=== PATIENT | female | born 1980 | race Caucasian/White ===

== ENCOUNTER 2016-04-24 18:02 | Emergency (ER) | payer BC, OTHER ==
[~2016-04-24] VITALS: Ht 160 cm; Wt 52.6 kg
[~2016-04-24 18:02] MED LIST: AZTH250C PO; CODE118S2 PO; GUAI118L10 PO; GUAI5LIQ PO; LVT.025T PO; METH4TAB PO; PRD20T PO
--- OUTSIDE RECORDS SUMMARY | 2016-04-24 18:08 | XMS REPORT | Continuity of Care Document ---
Author Author [facility] Organization [facility] Address Unknown Phone Unavailable Allergies Active Description Code Type Severity Reaction Onset Reported/Identified Relationship to Patient Clinical Status Yes penicillin G Drug Allergy 07/08/2011 Yes penicillin G Drug Allergy N/A N/A 07/08/2011 Yes Synthroid 50 mcg tablet Drug Allergy N/A N/A 09/27/2013 Medications Problems Date Dx Coded Attending Type Code Diagnosis Diagnosed By 07/08/2011 782.0 DISTURBANCE OF SKIN SENSATION 07/08/2011 MATHEW RAMOS DO 782.0 DISTURBANCE OF SKIN SENSATION 07/08/2011 MATHEW RAMOS DO 782.0 DISTURBANCE OF SKIN SENSATION 07/08/2011 MATHEW RAMOS DO 782.0 DISTURBANCE OF SKIN SENSATION 07/08/2011 JONAH MALLORY APRN 782.0 DISTURBANCE OF SKIN SENSATION 07/08/2011 JONAH MALLORY APRN 782.0 DISTURBANCE OF SKIN SENSATION 11/13/2011 V04.81 FLU DX (3 YRS AND ABOVE, IM) 11/13/2011 MATHEW RAMOS DO V04.81 FLU DX (3 YRS AND ABOVE, IM) 11/13/2011 MATHEW RAMOS DO V04.81 FLU DX (3 YRS AND ABOVE, IM) 11/13/2011 MATHEW RAMOS DO V04.81 FLU DX (3 YRS AND ABOVE, IM) 11/13/2011 JONAH MALLORY APRN V04.81 FLU DX (3 YRS AND ABOVE, IM) 11/13/2011 JONAH MALLORY APRN V04.81 FLU DX (3 YRS AND ABOVE, IM) 06/10/2012 V70.5 PREEMPLOYMENT/PRESCHOOL EXAM 06/10/2012 MATHEW RAMOS DO V70.5 PREEMPLOYMENT/PRESCHOOL EXAM 06/10/2012 MATHEW RAMOS DO V70.5 PREEMPLOYMENT/PRESCHOOL EXAM 06/10/2012 RAMOS DO, MATHEW K V70.5 PREEMPLOYMENT/PRESCHOOL EXAM 06/10/2012 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 V70.5 PREEMPLOYMENT/PRESCHOOL EXAM 06/10/2012 MALLORY JONAH HARRIS V70.5 PREEMPLOYMENT/PRESCHOOL EXAM 09/09/2012 RAMOS DO, MATHEW K 728.85 SPASM OF MUSCLE 09/09/2012 RAMOS DO, MTAHEW K 786.50 UNSPECIFIED CHEST PAIN 09/09/2012 RAMOS DO, MATHEW K 728.85 SPASM OF MUSCLE 09/09/2012 RAMOS DO, MATHEW K 786.50 UNSPECIFIED CHEST PAIN 09/09/2012 RAMOS DO, MATHEW K 728.85 SPASM OF MUSCLE 09/09/2012 RAMOS DO, MATHEW K 786.50 UNSPECIFIED CHEST PAIN 09/09/2012 MALLORY JONAH HARRIS 728.85 SPASM OF MUSCLE 09/09/2012 MALLORY JONAH HARRIS 786.50 UNSPECIFIED CHEST PAIN 09/09/2012 MALLORY JONAH HARRIS 728.85 SPASM OF MUSCLE 09/09/2012 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 786.50 UNSPECIFIED CHEST PAIN 02/26/2013 RAMOS SHABBIR SCOTTA K 462 ACUTE PHARYNGITIS 02/26/2013 RAMOS DO MATHEW K 462 ACUTE PHARYNGITIS 02/26/2013 RAMOS , MATHEW K 462 ACUTE PHARYNGITIS 02/26/2013 JONAH MALLORY APRN 462 ACUTE PHARYNGITIS 02/26/2013 JONAH MALLORY APRN 462 ACUTE PHARYNGITIS 04/14/2013 SHABBIR RAMOS DOA K 244.9 HYPOTHYROIDISM 04/14/2013 RAMOS SHABBIR SCOTTA K 244.9 HYPOTHYROIDISM 04/14/2013 JONAH MALLORY APRN 244.9 HYPOTHYROIDISM 04/14/2013 MALLORY JONAH HARRIS 244.9 HYPOTHYROIDISM 06/30/2013 RAMOS SHABBIR SCOTTA K 784.0 HEADACHE 06/30/2013 RAMOS DOSHABBIRA K 784.0 HEADACHE 06/30/2013 JONAH MALLORY APRN 784.0 HEADACHE 06/30/2013 MALLORY JONAH HARRIS 784.0 HEADACHE 08/25/2013 MALLORY JONAH HARRIS 787.91 DIARRHEA 08/25/2013 JONAH MALLORY APRN 787.91 DIARRHEA 09/27/2013 JONAH MALLORY APRN 465.9 UPPER RESPIRATORY INFECTION Procedures Code [place] [address] TB TEST INTRADERMAL 06/10/2012 39436 ROUTINE VENIPUNCTURE 06/28/2013 44006 TSH 06/28/2013 Results Encounters ACCT No. Visit Date/Time Discharge Status Pt. Type Provider Facility Loc./Unit Complaint [id number] 05/27/2013 22:43:00 2013 23:36:00 DIS Emergency [id number] 03/03/2013 11:20:00 2013 12:27:00 DIS Emergency [id number] 03/01/2013 20:57:00 2012 22:04:00 DIS Emergency
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
[2016-04-24] MEDS ORDERED: TRAM50TA2 PO (20:02)
[2016-04-24] MEDS ORDERED: IBUPROFEN TABLET 200 MG TAB PO ONE (20:15)
[2016-04-24] MEDS ORDERED: TETANUS,DIPTH,PERTUSS P/F (BOOSTRIX) 0.5 ML VIAL IM ONE (20:30)
[2016-04-24 20:33] VITALS: BP 123/95
[2016-04-24] MEDS ORDERED: NEO/POLY/BAC (NEOSPORIN) OINT 15 GM TUBE TOP SCH (21:00)
== END 2016-04-24 20:33 | disposition home or self-care (01) ==
LOC: EDUNIT# 18:02 → ER 18:04
DX: S01.511A Laceration without foreign body of lip, initial encounter (principal); S00.81XA Abrasion of other part of head, initial encounter; Z23 Encounter for immunization; F17.210 Nicotine dependence, cigarettes, uncomplicated; V86.59XA Driver of other special all-terrain or other off-road motor vehicle injured in nontraffic accident, initial encounter; Y99.8 Other external cause status
CPT/HCPCS: 70486; 90471; 90715; 99282

== ENCOUNTER 2016-08-31 07:44 | Emergency (ER) | payer OTHER ==
[~2016-08-31] VITALS: Ht 162.6 cm; Wt 54.4 kg
[~2016-08-31 07:44] MED LIST changes: +TRAM50TA2 PO
[2016-08-31] MEDS ORDERED: KETOROLAC 60 MG/2 ML VIAL IM STA (07:54)
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
[2016-08-31 08:10] VITALS: BP 136/88
[2016-08-31] MEDS ORDERED: SULF1TAB35 PO (08:17)
[2016-08-31] MEDS ORDERED: ONDN4T PO (08:22)
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
--- OUTSIDE RECORDS SUMMARY | 2016-09-03 04:08 | XMS REPORT | CCD ---
Author Author PRAVIN AUGUSTIN Organization Unknown Address [address] [facility] [address] [place], [place] [id number] Care Team Providers Care Head Of Science Name Role Phone KRISTEN SMITH, JONAH Smith JONAH PETERSON MD Vital Signs Unknown or Not Available. Allergies Allergy Code Allergy Type Reaction Status PCN (penicillin) 0 Drug allergy Active Procedures Procedure Code Procedure Type Date CT ABD AND PELVIS W/O CONTRAST 545670644 SNOMED CT 2013 TEST URINE 755825946 SNOMED CT 01/09/2014 URINALYSIS C&S IF IND 013631986 SNOMED CT 01/09/2014 History of Immunizations Unknown or Not Available. Problems Unknown or Not Available. Results URINALYSIS C&S IF IND - Collect Date/Time: 01/09/2014 09:40 Test Name Code Test Result Test Units Test Ref Range COLOR RED N/A NL: YELLOW APPEARANCE CLOUDY N/A NL: CLEAR SPEC GRAV 1.025 N/A NL: 1.002 - 1.022 pH 5.0 N/A NL: 5 - 9 PROTEIN 100 N/A NL: NEGATIVE mg/dl GLUCOSE NEGATIVE N/A NL: NEGATIVE mg/dl KETONE TRACE N/A NL: NEGATIVE mg/dl BILIRUBIN NEGATIVE N/A NL: NEGATIVE BLOOD LARGE N/A NL: NEGATIVE NITRITE NEGATIVE N/A NL: NEGATIVE LEUK SCREEN TRACE N/A NL: NEGATIVE WBC/HPF RARE N/A NL: NEGATIVE RBC/HPF TNTC N/A NL: NEGATIVE CASTS/LPF NEGATIVE N/A NL: NEGATIVE CRYSTALS NEGATIVE N/A NL: NEGATIVE MUCOUS THRDS NEGATIVE N/A NL: NEGATIVE BACTERIA NEGATIVE N/A NL: NEGATIVE EPITH CELLS NEGATIVE N/A NL: NEGATIVE TRICHOMONAS NEGATIVE N/A NL: NEGATIVE YEAST NEGATIVE N/A NL: NEGATIVE CULT SET UP? NO N/A TEST URINE - Collect Date/Time: 01/09/2014 10:00 Test Name Code Test Result Test Units Test Ref Range TEST UR 2106-3 NEGATIVE N/A Medications Unknown or Not Available. Medications Administered Unknown or Not Available. Encounters Encounter Diagnosis Diagnosis Code Start Date CALCULUS OF URETER 5921 01/09/2014 Social History Smoking Status Code Start Date End Date Current every day smoker [id number] Patient Decision Aids Unknown or Not Available. Discharge Instructions You were admitted to [facility] on 01/09/2014 with a principal diagnosis of CALCULUS OF URETER. You were discharged from [facility] on 01/09/2014. Should you have any questions prior to discharge, please contact a member of your healthcare team. If you have left the hospital and have any questions, please contact your primary care physician. Chief Complaint and Reason For Visit Chief Complaint Date of Onset LEFT FLANK PAIN Function Status Unknown or Not Available. Referral/Transition of Care Unknown or Not Available.
--- OUTSIDE RECORDS SUMMARY | 2016-09-03 04:08 | XMS REPORT | CCD ---
Author Author EDITH REIS Organization Unknown Address [address] [facility] [address] [place], [place] [id number] Care Team Providers Care Data Architect Manager Name Role Phone KRISTEN SMITH, JONAH Smith JONAH PETERSON MD Vital Signs Unknown or Not Available. Allergies Allergy Code Allergy Type Reaction Status PCN (penicillin) 0 Drug allergy Active Procedures Procedure Code Procedure Type Date CT ABD AND PELVIS W/O CONTRAST 630018622 SNOMED CT 2013 TEST URINE 229248852 SNOMED CT 01/09/2014 URINALYSIS C&S IF IND 112407066 SNOMED CT 01/09/2014 History of Immunizations Unknown [...] Date End Date Current every day smoker [id number] Patient Decision Aids Unknown or Not Available. Discharge Instructions You were admitted to [facility] on 01/09/2014 with a principal diagnosis of CALCULUS OF URETER. You were discharged from [facility] on 01/09/2014. Should you have any questions [...]
== END 2016-08-31 08:22 | disposition home or self-care (01) ==
LOC: EDUNIT# 07:44 → ER 07:47
DX: S61.235A Puncture wound without foreign body of left ring finger without damage to nail, initial encounter (principal); E03.9 Hypothyroidism, unspecified; F17.210 Nicotine dependence, cigarettes, uncomplicated; Z90.49 Acquired absence of other specified parts of digestive tract; W54.0XXA Bitten by dog, initial encounter
CPT/HCPCS: 96372; 99283

== ENCOUNTER 2016-09-23 10:29 | Emergency (ER) | payer OTHER ==
[~2016-09-23] VITALS: Ht 162.6 cm; Wt 52.6 kg
[~2016-09-23 10:29] MED LIST changes: +ONDN4T PO; +SULF1TAB35 PO
--- NOTE | 2016-09-23 11:11 | ED Lower Extremity ---
General Chief Complaint: Lower Extremity Stated Complaint: RT ANKLE PAIN Nursing Triage Note: Pt reports twisting R ankle on 09/21 and has been unable to bear weight since. Nursing Sepsis Screen: No Definite Risk Source: patient, family (son) Exam Limitations: no limitations History of Present Illness Time seen by provider: 11:11 Initial Comments 36-year-old female patient presents to the emergency department complaints of right ankle/foot pain after twisting and on 09/21. Patient states she stepped off of cement onto an incline and rolled the ankle inward. Unable to bear weight. Denies previous injury to the right foot or ankle. Onset: other (09/21/16) Pain/Injury Location: right foot, right ankle Method of Injury: twisted Modifying Factors: Improves With Immobilization, Worse With Movement Allergies and Home Medications Allergies Coded Allergies: Penicillins (Verified Allergy, 03/01/13) Home Medications Hydrocodone/Acetaminophen 1 Each Tablet, 1-2 EACH PO Q4H PRN for PAIN, #30 Ref 0 Prescribed by: ZULEMA LAWLER on 09/23/16 1202 Constitutional: no symptoms reported Respiratory: no symptoms reported Cardiovascular: no symptoms reported Musculoskeletal: see HPI, No back pain, joint pain, joint swelling, No neck pain Skin: change in color (bruising to the right ankle and foot) Psychiatric/Neurological: No Symptoms Reported All Other Systems Reviewed Negative Unless Noted: Yes (Negative excepted noted.) Past Svqitap-Dzcehp-Wjadbf Hx Patient Social History Alcohol Use: Occasionally Uses Recreational Drug Use: No Smoking Status: Current Everyday Smoker Type Used: Cigarettes Recent Foreign Travel: No Contact w/Someone Who Travel: No Recent Infectious Disease Expo: No Recent Hopitalizations: No Immunizations Up To Date Tetanus Booster (TDap): Less than 5yrs Seasonal Allergies Seasonal Allergies: No Surgeries HX Surgeries: Yes (FALLOPIAN TUBE) Surgeries: Appendectomy Respiratory Hx Respiratory Disorders: No Cardiovascular Hx Cardiac Disorders: No Neurological Hx Neurological Disorders: No Reproductive System Hx Reproductive Disorders: No Sexually Transmitted Disease: No 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 Genitourinary Hx Genitourinary Disorders: No Gastrointestinal Hx Gastrointestinal Disorders: No Musculoskeletal Hx Musculoskeletal Disorders: No Endocrine Hx Endocrine Disorders: Yes Endocrine Disorders: Hypothyroidsim HEENT HX ENT Disorders: No Cancer Hx Cancer: No Psychosocial Hx Psychiatric Problems: No Blood Transfusions Hx Blood Disorders: No Reviewed Nursing Assessment Reviewed/Agree w Nursing PMH: Yes Family Medical History Significant Family History: No Pertinent Family Hx Physical Exam Vital Signs Vital Sign - Last 12Hours 09/23/16 10:39 Temp 96.8 Pulse 126 Resp 18 B/P (MAP) 145/113 Pulse Ox 98 O2 Delivery Room Air Capillary Refill : Less Than 3 Seconds General Appearance: WD/WN, no apparent distress Cardiovascular: normal peripheral pulses Hips: bilateral hip non-tender, bilateral hip normal inspection, bilateral hip normal range of motion, bilateral hip no evidence of injury Legs: bilateral leg non-tender, bilateral leg normal inspection, bilateral leg normal range of motion, bilateral leg no evidence of injury Knees: bilateral knee non-tender, bilateral knee normal inspection, bilateral knee normal range of motion, bilateral knee no evidence of injury Ankles: left ankle non-tender, left ankle normal inspection, left ankle normal range of motion, left ankle no evidence of injury, right ankle bone tenderness ( very mild tenderness over the medial malleolus), right ankle ecchymosis ( lateral malleolus), right ankle limited range of motion, right ankle pain, right ankle soft tissue tenderness (bilateral malleolus), right ankle swelling Feet: left foot non-tender, left foot normal inspection, left foot normal range of motion, left foot no evidence of injury, right foot bone tenderness ( tenderness over the proximal dorsal foot), right foot ecchymosis, right foot limited range of motion, right foot pain, right foot soft tissue tenderness, right foot swelling Neurologic/Tendon: normal sensation, normal motor functions, normal tendon functions, responds to pain, no evidence tendon injury Neurologic/Psychiatric: no motor/sensory deficits, alert, normal mood/affect, oriented x 3 Skin: normal color, warm/dry, ecchymosis (rt lateral ankle and foot.) Progress/Results/Core Measures Results/Orders My Orders Orders - ZULEMA LAWLER Acetaminophen Tablet (Tylenol Tablet) (09/23/16 12:03) Crutches (09/23/16 12:03) Steplite (09/23/16 12:03) Vital Signs/I&O Vital Sign - Last 12Hours 09/23/16 10:39 Temp 96.8 Pulse 126 Resp 18 B/P (MAP) 145/113 Pulse Ox 98 O2 Delivery Room Air Blood Pressure Mean: 124 Diagnostic Imaging Diagonstic Imaging: Xray Plain Films/CT/US/NM/MRI: ankle Comments FINDINGS: There is suggestion of bony irregularity seen along the hindfoot lateral aspect, probably in the anterior aspect of the calcaneus, which is not well evaluated on this exam. No definite fracture is seen. The ankle mortise is normal in configuration. IMPRESSION: No acute process. Dictated on workstation # [id number] Reviewed: Reviewed by Me (radiology report reviewed by me) Diagonstic Imaging: Xray Plain Films/CT/US/NM/MRI: other (foot) Comments FINDINGS: Along the lateral anterior aspect of the calcaneus there is a osseous irregularity only seen on one view. No definitive fracture line is seen. There is otherwise no fracture, dislocation or radiopaque foreign body. There is a sclerotic focus in the posterior inferior aspect of the calcaneus measuring 7 mm probably a bony island. IMPRESSION: Focal area of irregularity at the anterior lateral margin of the calcaneus seen on the oblique projection. This could potentially be secondary to an old injury or congenital. If this matches the area of concern and high clinical suspicion for an acute fracture, then CT scan of the hindfoot could be obtained. Dictated on workstation # [id number] Reviewed: Reviewed by Me (radiology report reviewed by me) Departure Communication Progress Notes Diagnostic findings discussed with the patient. Patient states she is driving home. We'll plan for giving patient Tylenol in the emergency department. Steplite boot placed on patient and patient given crutches. Impression Impression: Primary Impression: Avulsion fracture of calcaneus Disposition: 01 HOME, SELF-CARE Condition: Improved Departure-Patient Inst. Decision time for Depature: 11:59 Referrals: RODNEY BARRETT GARY MD (PCP) Primary Care Physician Patient Instructions: Foot Fracture (DC) Add. Discharge Instructions: All discharge instructions reviewed with patient and/or family. Voiced understanding. Medications as instructed. NO ALEVE, MOTRIN (IBUPROFEN), OR ASPIRIN. Boot and crutches as instructed. Ice pack for 20 minute intervals as needed for pain. Elevate the right foot on pillows. Nonweightbearing on the right foot/ankle until released by Dr. Barrett. Follow-up with Dr. Barrett within the next 7 days for recheck, call today for appointment time. Return to the emergency department for worsened symptoms or any other concerns. 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
--- NOTE | 2016-09-23 11:25 | Diagnostic Imaging Report ---
3 views of the right foot. INDICATION: Right foot pain after injury. FINDINGS: Along the lateral anterior aspect of the calcaneus there is a osseous irregularity only seen on one view. No definitive fracture line is seen. There is otherwise no fracture, dislocation or radiopaque foreign body. There is a sclerotic focus in the posterior inferior aspect of the calcaneus measuring 7 mm probably a bony island. IMPRESSION: Focal area of irregularity at the anterior lateral margin of the calcaneus seen on the oblique projection. This could potentially be secondary to an old injury or congenital. If this matches the area of concern and high clinical suspicion for an acute fracture, then CT scan of the hindfoot could be obtained. Dictated by: Dictated on workstation # [id number]
--- NOTE | 2016-09-23 11:52 | Diagnostic Imaging Report ---
EXAMINATION: Three views of the right ankle. INDICATION: Injury and right ankle pain. FINDINGS: There is suggestion of bony irregularity seen along the hindfoot lateral aspect, probably in the anterior aspect of the calcaneus, which is not well evaluated on this exam. No definite fracture is seen. The ankle mortise is normal in configuration. IMPRESSION: No acute process. Dictated by: Dictated on workstation # [id number]
[2016-09-23] MEDS ORDERED: HYDR-3812 PO (12:02)
[2016-09-23] MEDS ORDERED: ACETAMINOPHEN 500 MG TAB (TYLENOL) PO STA (12:03)
[2016-09-23 12:17] VITALS: BP 143/103
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
== END 2016-09-23 12:17 | disposition home or self-care (01) ==
LOC: EDUNIT# 10:29 → ER 10:31
DX: S92.001A Unspecified fracture of right calcaneus, initial encounter for closed fracture (principal); E03.9 Hypothyroidism, unspecified; F17.210 Nicotine dependence, cigarettes, uncomplicated; Z98.51 Tubal ligation status; Z90.49 Acquired absence of other specified parts of digestive tract; X50.0XXA Overexertion from strenuous movement or load, initial encounter
CPT/HCPCS: 73610; 73630; 99283

== ENCOUNTER 2017-11-20 12:08 | Outpatient (CLI) | payer OTHER ==
[~2017-11-20] VITALS: Ht 160 cm; Wt 49.9 kg
[~2017-11-20 12:08] MED LIST changes: -ALPR1TAB7 PO; -DOCU100C37 PO; -HYDR-34 PO; -IBUP-844 PO; -LEVO125T6 PO; -SIME80TA16 PO
[2017-11-20 12:19] VITALS: BP 138/99
[2017-11-20] MEDS ORDERED: ALPR1TAB7 PO (13:50)
[2017-11-20] MEDS ORDERED: LEVO125T6 PO (13:50)
[2017-11-27] MEDS ORDERED: DOCU100C37 PO (08:57)
[2017-11-27] MEDS ORDERED: IBUP-844 PO (08:57)
[2017-11-27] MEDS ORDERED: HYDR-34 PO (08:57)
[2017-11-27] MEDS ORDERED: SIME80TA16 PO (08:57)
== END 2017-11-20 12:32 | disposition home or self-care (01) ==
LOC: PREOP 12:08
PROVIDERS: ATTEND Obstetrics & Gynecology
DX: Z01.818 Encounter for other preprocedural examination (principal)
CPT/HCPCS: 87081

== ENCOUNTER → 2017-11-20 | Outpatient (CLI) | payer OTHER ==
[~2017-11-20] MED LIST changes: +ACHD5005 PO; +ALPR1TAB7 PO; +DOCU100C37 PO; +HYDR-34 PO; +IBUP-844 PO; +LEVO125T6 PO; +SIME80TA16 PO
--- NOTE | 2017-11-20 16:23 | Diagnostic Imaging Report ---
EXAMINATION: Pelvic ultrasound. INDICATION: Fibroid uterus. FINDINGS: There are no prior pelvic ultrasound examinations available for comparison. The CT abdomen/pelvis exam of 10/28/2017 however did note a 3.8 cm cyst in the right adnexa. This is felt to be most likely ovarian in nature. There was also a 5.6 cm myometrial mass arising from the uterine fundus. This did suggest a fibroid. On this exam, the uterus is nongravid and not enlarged measuring 7.6 x 3.0 x 2.7 cm. There is indeed a 5.2 x 4.9 x 5.3 cm hypoechoic area arising from the uterine fundus. This would correspond to the finding of the CT exam and most likely this does represent a fibroid. The endometrial lining itself is not thickened measuring 5-6 mm. There is a 1.6 x 1.2 cm cyst arising from the right ovary. Whether this corresponds to the 3.8 cm cyst seen previously is not certain. The left ovary is unremarkable. There is no solid pelvic mass or free fluid collection evident. IMPRESSION: 1. The large fibroid arising from the uterine fundus seen previously is again evident and no different. The cyst in the right adnexa however seen previously has either resolved or diminished in size. 2. There is no acute pelvic abnormality evident. Dictated by: Dictated on workstation # [id number]
== END ==
LOC: RAD 11:09
PROVIDERS: ATTEND Obstetrics & Gynecology
DX: D25.1 Intramural leiomyoma of uterus (principal)
CPT/HCPCS: 76830; 76856

== ENCOUNTER 2017-11-27 08:00 | Day surgery (SDC) | payer OTHER ==
[~2017-11-27] VITALS: Ht 160 cm; Wt 49.9 kg
[~2017-11-27 08:00] MED LIST changes: +ALPR1TAB7 PO; +LEVO125T6 PO
[2017-11-27] MEDS: LACTATED RINGERS 1,000 ML IV ONE ×2 (08:15→08:33)
[2017-11-27] MEDS ORDERED: ceFAZolin INJECTION 1,000 MG in NS (IVPB) 50 ML IV ONE (08:30)
[2017-11-27] MEDS ORDERED: metroNIDAZOLE 500MG/100ML IVPB 100 ML IV ONE (08:30)
[2017-11-27 08:37] VITALS: BP 140/90
[2017-11-27] MEDS ORDERED: CATHETER FLUSH 10 ML SYR IV PRN (08:45)
[2017-11-27] MEDS ORDERED: MIDAZOLAM 2 MG/2 ML (VERSED) VIAL IV ONE (08:45)
[2017-11-27] MEDS ORDERED: LACTATED RINGERS 1,000 ML IV SCH (08:53)
--- NOTE | 2017-11-27 08:53 | Progress Note-Pre Operative ---
Pre-Operative Progress Note H&P Reviewed The H&P was reviewed, patient examined and no changes noted. Date Seen by Provider: Nov 27, 2017 Time Seen by Provider: 08:55 Date H&P Reviewed: Nov 27, 2017 Time H&P Reviewed: 08:55 Pre-Operative Diagnosis: AUB, CPP, Fibroid uterus JONAH SUNG DO Nov 27, 2017 8:53 am
--- NOTE | 2017-11-27 08:55 | Discharge Inst-Women's Service ---
Discharge Inst-Women's Serv Depart Medication/Instructions New, Converted or Re-Newed RX: RX on Chart Consults/Follow Up Additional Follow Up: Yes Orders/Referrals Dr. Kim 7-10 days, 8 weeks Activity Activity: Activity as Tolerated Driving Instructions: No Driving for 1 Week NO SMOKING: NO SMOKING Nothing Inside Vagina: No Douching, No Beattie, No Tampons Diet Discharge Diet: No Restrictions Symptoms to Report to : Bleeding Excessive, Pain Increased, Fever Over 101 Degrees F, Vaginal Bleeding Increase, Questions/Concerns For Any Problems or Questions: Contact Your Physician Skin/Wound Care Infection Signs and Symptoms: Increased Redness, Foul Odor of Wound, Increased Drainage, Skin Itchy or Has a Rash, Increased Swelling, Temperature Above 101 F Operative Area Clean and Dry: Keep Incision Clean/Dry Stitches/Daria/Dermabond: Dermabond, Care of Stitches Bathing Instructions: JONAH Lezama DO Nov 27, 2017 8:55 am
[2017-11-27] MEDS ORDERED: IBUP-844 PO (08:57)
[2017-11-27] MEDS ORDERED: DOCU100C37 PO (08:57)
[2017-11-27] MEDS ORDERED: HYDR-34 PO (08:57)
[2017-11-27] MEDS ORDERED: SIME80TA16 PO (08:57)
[2017-11-27] MEDS: LACTATED RINGERS 1,000 ML IV PRN ×3 (08:59→15:53)
[2017-11-27] MEDS ORDERED: ZOLPIDEM 5 MG (AMBIEN) TAB PO PRN (09:00)
[2017-11-27] MEDS ORDERED: ONDANSETRON 4 MG/2 ML (SDV) Z0FRAN IV PRN (09:00)
[2017-11-27] MEDS ORDERED: HYDROcodone/APAP 7.5 MG/325 MG (LORTAB, LORCET PLUS) TABLET PO PRN (09:00)
[2017-11-27] MEDS ORDERED: ANTACID SUSP 30 ML UDC (MYLANTA) PO PRN (09:00)
[2017-11-27] MEDS ORDERED: SIMETHICONE 80 MG (MYLICON) CHEW PO PRN (09:00)
[2017-11-27] MEDS ORDERED: DOCUSATE SODIUM 100 MG (COLACE) CAP PO PRN (09:00)
[2017-11-27] MEDS ORDERED: CHLORASEPTIC LOZENGE MM PRN (09:00)
[2017-11-27] MEDS ORDERED: LIDOCAINE PF 2% 2 ML (XYLOCAINE) VIAL ONE (09:17)
[2017-11-27] MEDS ORDERED: proPOfol 200 MG/20 ML (DIPRIVAN) VIAL IV ONE (09:17)
[2017-11-27] MEDS ORDERED: ROCURONIUM 10 MG/ML 5 ML SYRINGE IV ONE (09:17)
[2017-11-27] MEDS ORDERED: DEXAMETHASONE 10 MG/ML (DECADRON) 1 ML VIAL ONE (09:17)
[2017-11-27] MEDS ORDERED: SEVOFLURANE (ULTANE) 15 ML INHAL SOLN ONE ×6 (09:17→11:48)
[2017-11-27] MEDS ORDERED: fentaNYL INJECTION 100 MCG/2 ML AMP ONE ×2 (09:17→11:24)
[2017-11-27] MEDS ORDERED: BUPIVACAINE 0.5% 30 ML (SENSORCAINE) VIAL ONE (09:23)
[2017-11-27] MEDS ORDERED: diphenhydrAMINE 50 MG/ML INJ (BENADRYL) ONE (10:24)
[2017-11-27] MEDS ORDERED: NEOSTIGMINE 1 MG/ML 5 ML SYRINGE ONE (11:24)
[2017-11-27] MEDS ORDERED: GLYCOPYRROLATE 0.2 MG/ML (ROBINUL) 2 ML VIAL ONE (11:24)
[2017-11-27] MEDS: KETOROLAC 30 MG/ML VIAL IV PRN ×2 (11:25→15:53)
[2017-11-27] MEDS ORDERED: morphine INJ 10 MG/ML 1ML (SYR OR VIAL) IVP ONE (12:00)
[2017-11-27] MEDS ORDERED: MEPERIDINE (DEMEROL) INJ 50 MG/ML IVP ONE (12:00)
[2017-11-27] MEDS ORDERED: HYDROmorphone 2 MG/ML VIAL (DILAUDID) IV ONE (12:00)
[2017-11-27] MEDS ORDERED: ONDANSETRON 4 MG/2 ML (SDV) Z0FRAN IVP PRN (12:00)
[2017-11-27 12:50] VITALS: BP 121/81
--- NOTE | 2017-11-27 14:14 | OPERATIVE REPORT ---
DATE OF SERVICE: 11/27/2017 PREOPERATIVE DIAGNOSES: 1. A 37-year-old female with pelvic pain. 2. Abnormal uterine bleeding. 3. Fibroid uterus. POSTOPERATIVE DIAGNOSES: 1. A 37-year-old female with pelvic pain. 2. Abnormal uterine bleeding. 3. Fibroid uterus. 4. Right ovarian cyst. PROCEDURES: Robotic-assisted total laparoscopic hysterectomy with bilateral salpingectomy and right oophorectomy. SURGEON: Victorino Sung DO ANESTHESIA: General endotracheal. ESTIMATED BLOOD LOSS: 30 mL. URINE OUTPUT: 250 mL clear at the end of the procedure. FLUIDS: 2200 mL of lactate Ringer's solution. FINDINGS: Grossly normal appearing left ovary. Evidence of previous tubal ligation on bilateral fallopian tubes and a cystic appearing right ovary that was enlarged approximately 3 to 4 cm in diameter, normal appearing uterine fundus; however, protruding out of the right side of the uterus at the level of the broad ligament and into the broad ligament, there is a large fibroid approximately 4 to 5 cm in diameter. Otherwise, grossly normal appearing vaginal mucosa and cervix from external visualization. SPECIMEN SENT: Uterus, bilateral fallopian tubes and right ovary. INDICATIONS FOR PROCEDURE: This 37-year-old female is a patient, who was consulted in my office for chronic pelvic pain and finding of this fibroid tumor on ultrasound as well as a cystic appearing ovary. The patient had dealt with chronic pelvic pain for quite some time, which brought her initially to her primary care provider, who initially worked her up and found these findings on ultrasound. She was then sent to my office for further consultation. In consultation, I reviewed with the patient the finding of fibroids as well as the pathophysiology, what to expect with the long-term and the potential of conservatively managing them. However, due to the patient's acute onset of pain and discomfort that was debilitating in nature, especially upon ambulating long periods of time. The patient is opting for removal of the fibroids including the uterus that she is done with childbearing and already had a tubal ligation performed. The risk of this procedure was discussed with the patient in detail including risk of bleeding, infection, damage to surrounding structures including, but not limited to bowel, bladder, ureter, kidneys, possible need for reoperation if any of those should occur, preoperative expectations, postoperative recovery time and expectations were discussed with the patient in detail as well as risk from anesthesia and even . After everything was discussed with the patient, consent was obtained in the preoperative area and the patient was taken to the operating room. OPERATIVE REPORT IN DETAIL: Once in the operating room, general anesthesia was found to be adequate, placed in the dorsal lithotomy position, prepped and draped in normal sterile fashion. Oquendo catheter was placed using sterile technique. A weighted speculum was inserted in the patient's vagina. A right angle retractor was used to visualize the cervix, which was grasped at the 12 o'clock position using a long Allis clamp. I then placed an 0 Vicryl suture through the anterior lip of the cervix and removed the Allis clamp and used the suture as my retraction point. I then gently sounded the uterine cavity and depth was found to be 8 cm. I selected an 8 cm Ana uterine manipulator tip and a 3.5 colpotomy ring and deployed the manipulator tip into the endometrial cavity deploying the balloon and advancing the colpotomy ring around the vaginal fornix. Once this was in place, I am able to appreciate bimanual manipulation on exam of the abdomen. I then performed change of gloves and took my attention to the abdomen where infraumbilically, I infiltrated this area using 0.25% Marcaine to make an 8 mm incision and directed the Veress needle through the incision until the intraperitoneal placement was confirmed using saline drop test. I then proceeded with insufflation using CO2 gas and opening pressure of 5 mmHg was noted. I proceeded to maximum pressure of 15 mmHg, at which point, I removed the Veress needle and introduced an 8 mm blunt da Sonu camera trocar. Once this was in place, I am able to confirm intraperitoneal placement using the da Sonu laparoscope and there was no evidence of damage upon my entry site. I then have the patient placed in steep Trendelenburg and I am able to visualize all my findings and my anatomy and I documented them with photodocumentation. I then placed two lateral trocars. These were both 8 mm trocars, approximately 8 cm lateral to the infraumbilical trocar. The skin was infiltrated using 0.25% Marcaine, 8 mm incisions were made and the trocars were placed under direct visualization of the laparoscope. Once these were in place, I brought in the da Sonu robot and docked in the appropriate fashion. I placed the fenestrated bipolar graspers in the left hand and monopolar elsie in the right hand. Due to removal of the ovary, I began on the right side, both to remove the ovary, but also to liberate the fibroid from the pelvic sidewall and identify the ureter as I go. The first thing I did was, identified the ureter and then I grasped the infundibulopelvic ligament staying clear of the ureter. I bipolar cauterized the infundibulopelvic ligament and transected it using the monopolar elsie. I then am able to take this down to the posterior reflection of the broad ligament, opening up the window in the peritoneum to allow access to visualize the fibroid and dissected bluntly off of the lateral pelvic sidewall. I then took the round ligament, bipolar cauterized and transected this using both the grasper and the monopolar elsie. Once this was done of the anterior leaflet, I am able to visualize the ureter during this dissection as well, staying clear of it. Once I have done this, I took my attention to the left side where I grasped the uteroovarian ligament. Since I am leaving the ovary, I bipolar cauterized and transected this using the monopolar elsie. I then created a window in the mesosalpinx on the left side and then took this down the mesosalpinx amputating the fallopian tube from its surrounding structures. I then grasped the round ligament, bipolar cauterized and transected using the monopolar elsie. I then am able to grasp the entire broad ligament, bipolar cauterized and transected this in a similar fashion down to the lower uterine segment, at which point, I the anterior and posterior leaflets of the broad ligament. The anterior leaflet dissection was taken down to the anterior vaginal fornix, which encounters this right-sided anterior fibroid. The posterior leaflet was taken around to the posterior vaginal fornix. I am able to bluntly dissect the peritoneum off of the anterior vaginal fornix and the lateral vaginal fornices allowing me to visualize the uterine vessels, which I bipolar cauterized and transected using the monopolar elsie. I then created a colpotomy at the 6 o'clock position. Staying clear of the bowel, I monopolar around the colpotomy site following the Ana uterine manipulator, colpotomy ring as I go. Once this was done and it was completed in circumferentially, I am able to remove the specimen through the vagina. I then proceeded to closing the vaginal cuff and the lateral vaginal apices using 2-0 Vicryl suture in a [id number] fashion colposuspending it to the uterosacral ligaments. I then closed the remainder of the vaginal cuff using 2-0 V-Loc in a running fashion, after which, there was no active bleeding noted from any of my dissection planes. I then undocked the da Sonu robot and I proceeded with the remainder of the case laparoscopically. I then once again copiously irrigated the pelvis using normal saline. Once again, no active bleeding was noted. I placed FloSeal hemostatic agent over all my planes of dissection. There are two small nodular free floating bodies in the peritoneal cavity, which I removed using an Endopouch bag from the left-sided trocar site. Once this was removed, I removed the right trocar site and had the patient taken out of steep Trendelenburg. Insufflation was then released from the infraumbilical trocar site and 10 mL of 0.25% Marcaine was introduced in the peritoneal cavity from this trocar site before it was removed. I then closed the skin using 4-0 Monocryl in interrupted subcuticular stitches. Dermabond was applied in the incisions and Band-Aids were placed over these. A Oquendo catheter was left in place. The patient tolerated the procedure well and sent to recovery area in stable condition. Lap and sponge count was correct at the end of the procedure. Instrument count was correct as well and 2 grams of Ancef and 500 mg of Flagyl were given preoperatively for infection prophylaxis. Job ID: [id number] DocumentID: [id number] Dictated Date: 11/27/2017 11:44:06 Plant Guide Date: 11/27/2017 14:13:21 Dictated By: VICTORINO SUNG DO
[2017-11-28] MEDS ORDERED: IBUPROFEN 600 MG (MOTRIN) TAB PO PRN (01:45)
--- NOTE | 2017-11-28 09:45 | Anesthesia-General Post-Op ---
General Post Op Complications Complications None Follow Up Care/Instructions Patient Instructions None needed. Anesthesia/Patient Condition Patient Condition Patient discharged, no apparent adverse anesthesia problems noted in chart review. TONY GORMAN CRNA Nov 28, 2017 09:44
== END 2017-11-27 17:55 | disposition home or self-care (01) ==
LOC: SDC 08:00 → LDRP 12:45 → SDC 17:55
PROVIDERS: ATTEND Obstetrics & Gynecology
DX: D25.1 Intramural leiomyoma of uterus (principal); N83.11 Corpus luteum cyst of right ovary; E03.9 Hypothyroidism, unspecified; F17.210 Nicotine dependence, cigarettes, uncomplicated; Z79.899 Other long term (current) drug therapy
CPT/HCPCS: 84703; 86850; 86900; 86901; 94664

== ENCOUNTER 2018-02-18 08:31 | Emergency (ER) | payer OTHER ==
[~2018-02-18] VITALS: Ht 160 cm; Wt 48.1 kg
[~2018-02-18 08:31] MED LIST changes: +DOCU100C37 PO; +HYDR-34 PO; +IBUP-844 PO; +SIME80TA16 PO
[2018-02-18] MEDS ORDERED: NS IV 1000 ML 1,000 ML IV ONE (08:51)
[2018-02-18 09:01] LABS: BASOPHILS # (AUTO) 0.1 10^3/uL (0.0-0.1); BASOPHILS % (AUTO) 1 % (0-10); EOSINOPHILS # (AUTO) 0.2 10^3/uL (0.0-0.3); EOSINOPHILS % (AUTO) 2 % (0-10); HEMATOCRIT 48 % (35-52); HEMOGLOBIN 15.8 G/DL (11.5-16.0); LYMPHOCYTES # (AUTO) 4.6 X 10^3 (1.0-4.0); LYMPHOCYTES % (AUTO) 48 % (12-44); MEAN CORPUSCULAR HEMOGLOBIN 30 PG (25-34); MEAN CORPUSCULAR HGB CONC 33 G/DL (32-36); MEAN CORPUSCULAR VOLUME 92 FL (80-99); MEAN PLATELET VOLUME 8.8 FL (7.4-10.4); MONOCYTES # (AUTO) 0.5 X 10^3 (0.0-1.0); MONOCYTES % (AUTO) 6 % (0-12); NEUTROPHILS # (AUTO) 4.2 X 10^3 (1.8-7.8); NEUTROPHILS % (AUTO) 44 % (42-75); PLATELET COUNT 623 10^3/uL (130-400); RED BLOOD COUNT 5.19 10^6/uL (4.35-5.85); RED CELL DISTRIBUTION WIDTH 14.8 % (10.0-14.5); WHITE BLOOD COUNT 9.5 10^3/uL (4.3-11.0)
[2018-02-18 09:01] LABS: BILIRUBIN,URINE NEGATIVE (NEGATIVE); CLARITY,URINE CLEAR; COLOR,URINE YELLOW; GLUCOSE, URINE (UA) NEGATIVE (NEGATIVE); KETONES,URINE NEGATIVE (NEGATIVE); LEUKOCYTE ESTERASE ,URINE NEGATIVE (NEGATIVE); NITRITE,URINE NEGATIVE (NEGATIVE); PH,URINE 7 (5-9); PROTEIN,URINE NEGATIVE (NEGATIVE); UROBILINOGEN,URINE NORMAL (NORMAL)
--- NOTE | 2018-02-18 09:07 | ED General ---
General Stated Complaint: FREQUENT FALLS Source of Information: Patient Exam Limitations: No Limitations History of Present Illness Date Seen by Provider: Feb 18, 2018 Time Seen by Provider: 08:38 Initial Comments Here with report of frequent falls over the last week and a half. Also has intermittent mild cough. Does smoke and drink approximately 3 beers a day. Falls have progressively worsened over the last 1-2 weeks. She does report hitting her head. She reports headache. She seems a bit confused. Denies nausea or vomiting. States that when she is walking she will fall into the dodd or to the floor of the dodd are not there. She was slightly unsteady on her feet when walking in. Timing/Duration: 1 Week, Changing Over Time, Getting Worse Severity: Moderate Associated Systoms: No Chest Pain; Cough; No Fever/Chills; Headaches, Malaise; No Nausea/Vomiting; Weakness Allergies and Home Medications Allergies Coded Allergies: Penicillins (Verified Allergy, Unknown, 02/18/18) Home Medications Alprazolam 1 Mg Tablet, 1 MG PO BID PRN for ANXIETY, (Reported) Levothyroxine Sodium 125 Mcg Tablet, 125 MCG PO HS, (Reported) Patient Home Medication List Home Medication List Reviewed: Yes Review of Systems Review of Systems Constitutional: see HPI; No chills, No fever EENTM: no symptoms reported Respiratory: cough; No wheezing Cardiovascular: No chest pain, No edema, No palpitations Gastrointestinal: No abdominal pain, No nausea, No vomiting Genitourinary: No dysuria, No frequency : No Musculoskeletal: back pain, muscle pain Skin: change in color (a few bruises from falls); No rash Psychiatric/Neurological: Headache, Weakness All Other Systems Reviewed Negative Unless Noted: Yes Past Eiejeke-Pgfyqh-Qawtkk Hx Past Med/Social Hx: Reviewed Nursing Past Med/Soc Hx Patient Social History Alcohol Use: Regular Use Alcohol Beverage of Choice: Beer Recreational Drug Use: No Smoking Status: Current Everyday Smoker Type Used: Cigarettes Recent Hopitalizations: Yes Immunizations Up To Date Tetanus Booster (TDap): Less than 5yrs PED Vaccines UTD: Yes Seasonal Allergies Seasonal Allergies: No Past Medical History Surgeries: Yes (FALLOPIAN TUBE REMOVED, dxls X2 ON RIGHT TUBE) Appendectomy, Hysterectomy, Tubal Ligation Respiratory: No Cardiac: No Neurological: No Reproductive Disorders: Yes [employer] History: Tubal Ligation Sexually Transmitted Disease: No Genitourinary: No Gastrointestinal: No Musculoskeletal: No Endocrine: Yes Hypothyroidsim HEENT: No Cancer: No Psychosocial: No Integumentary: No Blood Disorders: No Family Medical History Reviewed Nursing Family Hx Not obtainable due to adoption No Pertinent Family Hx Physical Exam Vital Signs Vital Signs - First Documented 02/18/18 02/18/18 08:34 09:18 Temp 97.6 Pulse 138 Resp 16 B/P (MAP) 138/92 (107) Pulse Ox 94 O2 Delivery Nasal Cannula O2 Flow Rate 2.00 Capillary Refill : Height, Weight, BMI Height: 5'3.00" Weight: 110lbs. 0.0oz. 49.003128ij; 19.5 BMI Method:Stated General Appearance: No Apparent Distress, WD/WN HEENT: PERRL/EOMI, Pharynx Normal Neck: Non Tender, Supple Respiratory: Lungs Clear, Normal Breath Sounds, No Respiratory Distress Cardiovascular: No Murmur, Tachycardia Gastrointestinal: Non Tender, Soft Back: Normal Inspection, No CVA Tenderness, No Vertebral Tenderness Extremity: Normal Range of Motion, Non Tender, No Calf Tenderness Neurologic/Psychiatric: Alert, Oriented x3, Abnormal Gait, Depressed Affect, Other (does appear to have some balance issues walking) Skin: Normal Color, Warm/Dry Progress/Results/Core Measures Suspected Sepsis SIRS Temperature: Pulse: Respiratory Rate: Laboratory Tests 02/18/18 08:55: White Blood Count 9.5 Blood Pressure / Mean: Laboratory Tests 02/18/18 08:55: Creatinine 0.74, Platelet Count 623H, Total Bilirubin 0.2 Results/Orders Lab Results Laboratory Tests Test 02/18/18 08:34 02/18/18 08:55 02/18/18 09:08 Range/Units Urine Color YELLOW Urine Clarity CLEAR Urine pH 7 5-9 Urine Specific [place] 1.005 L 1.016-1.022 Urine Protein NEGATIVE NEGATIVE Urine Glucose (UA) NEGATIVE NEGATIVE Urine Ketones NEGATIVE NEGATIVE Urine Nitrite NEGATIVE NEGATIVE Urine Bilirubin NEGATIVE NEGATIVE Urine Urobilinogen NORMAL NORMAL MG/DL Urine Leukocyte Esterase NEGATIVE NEGATIVE Urine RBC (Auto) NEGATIVE NEGATIVE Urine RBC NONE /HPF Urine WBC 0-2 /HPF Urine Squamous Epithelial Cells 2-5 /HPF Urine Renal Epithelial Cells NONE /HPF Urine Crystals NONE /LPF Urine Bacteria NEGATIVE /HPF Urine Casts NONE /LPF Urine Mucus NEGATIVE /LPF Urine Culture Indicated NO Urine Opiates Screen NEGATIVE NEGATIVE Urine Oxycodone Screen NEGATIVE NEGATIVE Urine Methadone Screen NEGATIVE NEGATIVE Urine Propoxyphene Screen NEGATIVE NEGATIVE Urine Barbiturates Screen NEGATIVE NEGATIVE Ur Tricyclic Antidepressants Screen NEGATIVE NEGATIVE Urine Phencyclidine Screen NEGATIVE NEGATIVE Urine Amphetamines Screen NEGATIVE NEGATIVE Urine Methamphetamines Screen NEGATIVE NEGATIVE Urine Benzodiazepines Screen POSITIVE H NEGATIVE Urine Cocaine Screen NEGATIVE NEGATIVE Urine Cannabinoids Screen NEGATIVE NEGATIVE White Blood Count 9.5 4.3-11.0 10^3/uL Red Blood Count 5.19 4.35-5.85 10^6/uL Hemoglobin 15.8 11.5-16.0 G/DL Hematocrit 48 35-52 % Mean Corpuscular Volume 92 80-99 FL Mean Corpuscular Hemoglobin 30 25-34 PG Mean Corpuscular Hemoglobin Concent 33 32-36 G/DL Red Cell Distribution Width 14.8 H 10.0-14.5 % Platelet Count 623 H 130-400 10^3/uL Mean Platelet Volume 8.8 7.4-10.4 FL Neutrophils (%) (Auto) 44 42-75 % Lymphocytes (%) (Auto) 48 H 12-44 % Monocytes (%) (Auto) 6 0-12 % Eosinophils (%) (Auto) 2 0-10 % Basophils (%) (Auto) 1 0-10 % Neutrophils # (Auto) 4.2 1.8-7.8 X 10^3 Lymphocytes # (Auto) 4.6 H 1.0-4.0 X 10^3 Monocytes # (Auto) 0.5 0.0-1.0 X 10^3 Eosinophils # (Auto) 0.2 0.0-0.3 10^3/uL Basophils # (Auto) 0.1 0.0-0.1 10^3/uL D-Dimer 0.43 0.00-0.49 UG/ML Carboxyhemoglobin 6.1 H 0.5-2.5 % Sodium Level 147 H 135-145 MMOL/L Potassium Level 3.8 3.6-5.0 MMOL/L Chloride Level 107 98-107 MMOL/L Carbon Dioxide Level 26 21-32 MMOL/L Anion Gap 14 5-14 MMOL/L Blood Urea Nitrogen 12 7-18 MG/DL Creatinine 0.74 0.60-1.30 MG/DL Estimat Glomerular Filtration Rate > 60 BUN/Creatinine Ratio 16 Glucose Level 90 70-105 MG/DL Calcium Level 9.5 8.5-10.1 MG/DL Corrected Calcium 8.5-10.1 MG/DL Magnesium Level 2.4 1.8-2.4 MG/DL Total Bilirubin 0.2 0.1-1.0 MG/DL Aspartate Amino Transf (AST/SGOT) 26 5-34 U/L Alanine Aminotransferase (ALT/SGPT) 20 0-55 U/L Alkaline Phosphatase 78 40-136 U/L C-Reactive Protein High Sensitivity 0.08 0.00-0.50 MG/DL Total Protein 7.7 6.4-8.2 GM/DL Albumin 4.6 H 3.2-4.5 GM/DL Thyroid Stimulating Hormone (TSH) 0.01 L 0.35-4.94 UIU/ML Free Thyroxine 1.05 0.70-1.48 NG/DL Salicylates Level < 5.0 L 5.0-20.0 MG/DL Acetaminophen Level < 10 L 10-30 UG/ML Serum Alcohol 329 *H <10 MG/DL Blood Gas Puncture Site LT RAD Blood Gas Patient Temperature 97.6 Arterial Blood pH 7.42 7.37-7.43 Arterial Blood Partial Pressure CO2 41 35-45 MMHG Arterial Blood Partial Pressure O2 71 L 79-93 MMHG Arterial Blood HCO3 26 23-27 MMOL/L Arterial Blood Total CO2 27.7 21.0-31.0 MMOL/L Arterial Blood Oxygen Saturation 92 L 94-100 % Arterial Blood Base Excess 2.2 -2.5-2.5 MMOL/L Jasiel Test YES-POS Blood Gas Ventilator Setting NO Blood Gas Inspired Oxygen ROOM AIR My Orders Orders - PATRICK DEAN MD Cbc With Automated Diff (02/18/18 08:36) Comprehensive Metabolic Panel (02/18/18 08:36) Drug Screen Stat (Urine) (02/18/18 08:36) Magnesium (02/18/18 08:36) Thyroid Stimulating Hormone (02/18/18 08:36) Ua Culture If Indicated (02/18/18 08:36) Arterial Blood Gas (02/18/18 08:51) Hs C Reactive Protein (02/18/18 08:51) Saline Lock/Iv-Start (02/18/18 08:51) Ns Iv 1000 Ml (Sodium Chloride 0.9%) (02/18/18 08:51) Carboxyhemoglobin (02/18/18 08:54) Acetaminophen (02/18/18 08:58) Alcohol (02/18/18 08:58) Salicylate (02/18/18 08:58) Ct Head Wo (02/18/18 09:09) Fibrin Degradation Products (02/18/18 09:15) Arterial Blood Draw (02/18/18 ) Free T4 (Free Thyroxine) (02/18/18 10:10) Medications Given in ED Current Medications Medications Dose Ordered Sig/Adithya Route Start Time Stop Time Status Last Admin Dose Admin Sodium Chloride 1,000 ml @ 0 mls/hr Q0M ONCE IV 02/18/18 08:51 02/18/18 08:55 DC 02/18/18 09:28 1,000 MLS/HR Vital Signs/I&O 02/18/18 02/18/18 08:34 09:18 Temp 97.6 Pulse 138 Resp 16 B/P (MAP) 138/92 (107) Pulse Ox 94 98 O2 Delivery Nasal Cannula O2 Flow Rate 2.00 Capillary Refill : Progress Note : Progress Note IV, labs, normal saline 1 L bolus, UA, ABG and carboxyhemoglobin ordered. We will also check thyroid. Patient does have gas heater at home. We'll go ahead and get noncontrast CT scan of the head potential for contrasted scans later. CT negative. Pending labs. 1010: TSH is very low. We will check free T4. Alcohol level noted behind. I did discuss this at length with the patient and her . The does not drink. She reports that she drank 4 beers last night but nothing overnight and nothing this morning. She is not sure how her alcohol levels this high. We did discuss at length about alcohol dependence and abuse and my concerns with this for her. She verbalizes understanding. Pending T4 level. 1140: T4 level in normal range. Patient is actually doing better with heart rate now in the 80s to 90s. We again had conversation about alcohol especially with benzodiazepine use. Discussed the concerns related to respiratory suppression and depression overall. Again overall doing better now. Discharged home with return precautions. Patient verbalize understanding instructions and agreement with plan. Patient is able to walk without difficulty or balance problems. States much better. Diagnostic Imaging Diagonstic Imaging: CT Plain Films/CT/US/NM/MRI: head Comments NAME: TAVIA DOMINIQUE [facility] REC#: [id number] PT STATUS: REG ER : 1980 PHYSICIAN: PATRICK DEAN MD ADMIT DATE: 02/18/18/ER Draft Date of Exam:02/18/18 CT HEAD WO INDICATION: Headache. Dizziness. Frequent falls. TECHNIQUE: Routine non contrast-enhanced axial images were obtained from the skull base to the vertex. COMPARISON: 06/30/2011. FINDINGS: The ventricles and cortical sulci are normal in size and contour. There is no midline shift or mass-effect. No acute intra-axial hemorrhage is seen. There are no abnormal areas of increased or decreased density to suggest acute hemorrhage or edema. No extra-axial masses or collections are present. The bony calvarium is intact. The visualized paranasal sinuses are unremarkable. The mastoid air cells are clear. IMPRESSION: 1. No acute intracranial abnormality. No CT evidence of mass, acute infarct or intracranial hemorrhage. Dictated on workstation # [id number] Dict: 02/18/18 09 Trans: 02/18/18 0933 [facility] [id number] Interpreted by: JANY TORRES MD Electronically signed by: Departure Impression Primary Impression: Disequilibrium Additional Impression: Alcohol intoxication Qualified Codes: F10.920 - Alcohol use, unspecified with intoxication, uncomplicated Disposition: 01 HOME, SELF-CARE Condition: Improved Departure-Patient Inst. Decision time for Depature: 11:47 Referrals: LAURA BARRIGA MD (PCP/Family) Primary Care Physician Patient Instructions: Alcohol Abuse and Alcoholism (DC), Vertigo (a Type of Dizziness) (DC) Add. Discharge Instructions: You should stop drinking alcohol. Follow up with your doctor for recheck and further evaluation. Drink plenty of fluids and eat a normal diet. Return for worse pain, fever, vomiting, weakness, breathing problems or other concerns as needed. PATRICK DEAN MD Feb 18, 2018 09:06
[2018-02-18 09:15] LABS: BACTERIA,URINE NEGATIVE /HPF; WBC,URINE 0-2 /HPF
[2018-02-18 09:15] LABS: ABG BASE EXCESS 2.2 MMOL/L (-2.5-2.5); ABG OXYGEN SATURATION 92 % (94-100); ABG PCO2 41 MMHG (35-45); ABG PH 7.42 (7.37-7.43); ABG PO2 71 MMHG (79-93); ABG TCO2 27.7 MMOL/L (21.0-31.0)
[2018-02-18 09:16] LABS: ALLENS TEST YES-POS; INSPIRED O2 ROOM AIR; PATIENT TEMP 97.6; VENTILATOR NO
[2018-02-18 09:17] LABS: AMPHETAMINE SCREEN, URINE NEGATIVE (NEGATIVE); BARBITURATE SCREEN URINE NEGATIVE (NEGATIVE); BENZODIAZEPINES SCREEN URINE POSITIVE (NEGATIVE); CANNABINOID SCREEN, URINE NEGATIVE (NEGATIVE); COCAINE SCREEN URINE NEGATIVE (NEGATIVE); METHADONE STAT NEGATIVE (NEGATIVE); METHAMPHETAMINE SCREEN URINE S NEGATIVE (NEGATIVE); OPIATE SCREEN URINE NEGATIVE (NEGATIVE); OXYCODONE STAT NEGATIVE (NEGATIVE); PROPOXYPHENE STAT NEGATIVE (NEGATIVE); TRICYCLIC ANTIDEPRESSANTS SCRE NEGATIVE (NEGATIVE)
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
[2018-02-18 09:30] LABS: SALICYLATE < 5.0 MG/DL (5.0-20.0)
[2018-02-18 09:32] LABS: ALANINE AMINOTRANSFERASE 20 U/L (0-55); ALBUMIN 4.6 GM/DL (3.2-4.5); ALKALINE PHOSPHATASE 78 U/L (40-136); BILIRUBIN,TOTAL 0.2 MG/DL (0.1-1.0); BUN/CREATININE RATIO 16; CALCIUM 9.5 MG/DL (8.5-10.1); CARBON DIOXIDE 26 MMOL/L (21-32); CHLORIDE 107 MMOL/L (98-107); CREATININE SERUM 0.74 MG/DL (0.60-1.30); GFR ESTIMATED > 60; GLUCOSE 90 MG/DL (70-105); MAGNESIUM 2.4 MG/DL (1.8-2.4); POTASSIUM 3.8 MMOL/L (3.6-5.0); SODIUM 147 MMOL/L (135-145); TOTAL PROTEIN 7.7 GM/DL (6.4-8.2)
[2018-02-18 09:33] LABS: ACETAMINOPHEN < 10 UG/ML (10-30)
--- NOTE | 2018-02-18 09:33 | Diagnostic Imaging Report ---
INDICATION: Headache. Dizziness. Frequent falls. TECHNIQUE: Routine non contrast-enhanced axial images were obtained from the skull base to the vertex. COMPARISON: 06/30/2011. FINDINGS: The ventricles and cortical sulci are normal in size and contour. There is no midline shift or mass-effect. No acute intra-axial hemorrhage is seen. There are no abnormal areas of increased or decreased density to suggest acute hemorrhage or edema. No extra-axial masses or collections are present. The bony calvarium is intact. The visualized paranasal sinuses are unremarkable. The mastoid air cells are clear. IMPRESSION: 1. No acute intracranial abnormality. No CT evidence of mass, acute infarct or intracranial hemorrhage. Dictated by: Dictated on workstation # [id number]
[2018-02-18 11:52] VITALS: BP 112/89
== END 2018-02-18 11:54 | disposition home or self-care (01) ==
LOC: EDUNIT# 08:31 → ER 08:32
DX: F10.120 Alcohol abuse with intoxication, uncomplicated (principal); E87.8 Other disorders of electrolyte and fluid balance, not elsewhere classified; F17.210 Nicotine dependence, cigarettes, uncomplicated; E03.9 Hypothyroidism, unspecified; Z88.0 Allergy status to penicillin; Z90.49 Acquired absence of other specified parts of digestive tract; Z90.710 Acquired absence of both cervix and uterus; Z98.51 Tubal ligation status
CPT/HCPCS: 36415; 36600; 70450; 80053; 80306; 80320; 80329; 81000; 82375; 82805; 83735; 84439; 84443; 85025; 85379; 86141; 96360

== ENCOUNTER 2018-11-16 12:18 | Emergency (ER) | payer OTHER ==
[~2018-11-16] VITALS: Ht 160 cm; Wt 50.0 kg
[2018-11-16] MEDS ORDERED: LACTATED RINGERS 1,000 ML IV ONE (12:40)
[2018-11-16 12:52] LABS: BASOPHILS # (AUTO) 0.1 10^3/uL (0.0-0.1); BASOPHILS % (AUTO) 1 % (0-10); EOSINOPHILS # (AUTO) 0.1 10^3/uL (0.0-0.3); EOSINOPHILS % (AUTO) 1 % (0-10); HEMATOCRIT 48 % (35-52); HEMOGLOBIN 16.1 G/DL (11.5-16.0); LYMPHOCYTES # (AUTO) 3.4 X 10^3 (1.0-4.0); LYMPHOCYTES % (AUTO) 37 % (12-44); MEAN CORPUSCULAR HEMOGLOBIN 32 PG (25-34); MEAN CORPUSCULAR HGB CONC 34 G/DL (32-36); MEAN CORPUSCULAR VOLUME 94 FL (80-99); MEAN PLATELET VOLUME 8.4 FL (7.4-10.4); MONOCYTES # (AUTO) 0.8 X 10^3 (0.0-1.0); MONOCYTES % (AUTO) 9 % (0-12); NEUTROPHILS # (AUTO) 4.9 X 10^3 (1.8-7.8); NEUTROPHILS % (AUTO) 53 % (42-75); PLATELET COUNT 571 10^3/uL (130-400); RED CELL DISTRIBUTION WIDTH 13.3 % (10.0-14.5); WHITE BLOOD COUNT 9.2 10^3/uL (4.3-11.0)
[2018-11-16 13:03] LABS: INR 0.9 (0.8-1.4); PROTHROMBIN TIME PATIENT 12.6 SEC (12.2-14.7)
[2018-11-16 13:12] LABS: ALANINE AMINOTRANSFERASE 32 U/L (0-55); ALBUMIN 4.5 GM/DL (3.2-4.5); ALKALINE PHOSPHATASE 104 U/L (40-136); BILIRUBIN,TOTAL 0.4 MG/DL (0.1-1.0); BUN/CREATININE RATIO 4; CALCIUM 9.8 MG/DL (8.5-10.1); CARBON DIOXIDE 29 MMOL/L (21-32); CHLORIDE 98 MMOL/L (98-107); CREATINE KINASE 630 U/L (29-168); CREATININE SERUM 0.74 MG/DL (0.60-1.30); GFR ESTIMATED > 60; GLUCOSE 98 MG/DL (70-105); POTASSIUM 2.8 MMOL/L (3.6-5.0); SODIUM 141 MMOL/L (135-145); TOTAL PROTEIN 7.8 GM/DL (6.4-8.2)
--- NOTE | 2018-11-16 13:12 | ED General ---
General Chief Complaint: General Problems/Pain Stated Complaint: FEELING "OFF" SINCE SEIZURE ON 11/11/18 Source of Information: Patient History of Present Illness Date Seen by Provider: Nov 16, 2018 Time Seen by Provider: 12:50 Initial Comments PT ARRIVES VIA POV FROM HOME STATES SHE HAD A SEIZURE LAST Friday11/11/18--WAS AT WORK IN [place], WAS STANDING AND TALKING WITH SOMEONE, WHEN SEIZURE OCCURRED. RECALLS EVENTS JUST PRIOR TO THE EPISODE, AND THEN WAKING UP IN THE AMBULANCE. STATES SHE HIT THE RIGHT POSTERIOR ASPECT OF HER HEAD AND IT IS STILL SORE PT HAS A LEFT BLACK EYE--HAS NO IDEA HOW THAT OCCURRED. PT WAS SEEN AT [facility] AND HAD TESTS, INCLUDING A CT SCAN, AND ALL WERE REPORTEDLY NORMAL AND SHE WAS SENT HOME. NO RX'S NO FOLLOW UP APPOINTMENT WITH ANYONE PT STATES SINCE THEN, "I CAN'T TASTE, SMELL OR FEEL ANYTHING" "I FEEL OFF" "I DON'T FEEL LIKE MYSELF" "I CAN'T THINK" STATES HER ENTIRE BODY FEELS NUMB AND TINGLY, NO MOTOR DEFICITS, NO BALANCE PROBLEMS NO VISION CHANGES + NAUSEA, NO VOMITING NO DIZZINESS NO NECK OR BACK PAIN, OR OTHER INJURIES STATES SHE ALSO HAD A SEIZURE IN AUGUST, SAME CIRCUMSTANCES--WAS AT WORK, WENT TO [facility], TESTS WERE REPORTED NORMAL PT HAS NEVER HAD SEIZURES BEFORE THE ONE SHE HAD IN AUGUST PT HAS NOT FOLLOWED UP WITH ANYONE, HAS NOT BEEN REFERRED TO NEUROLOGIST. PT ADAMANTLY DENIES ALCOHOL OR DRUG USE ON ARRIVAL, BUT PT REEKS OF ETOH. PCP: DR. BOONE--STATES HE JUST RETIRED, IS PLANNING ON SEEING DR. SPAULDING IN [place], BUT HAS NOT ATTEMPTED TO MAKE AN APPOINTMENT WITH HIM Allergies and Home Medications Allergies Coded Allergies: Penicillins (Verified Allergy, Unknown, 02/18/18) Home Medications Alprazolam 1 Mg Tablet, 1 MG PO BID PRN for ANXIETY, (Reported) Clonidine HCl 0.1 Mg Tablet, 0.1 MG PO BID Prescribed by: RUTH CHAMBERS on 11/16/18 1504 Levothyroxine Sodium 125 Mcg Tablet, 125 MCG PO HS, (Reported) Patient Home Medication List Home Medication List Reviewed: Yes Review of Systems Review of Systems Constitutional: see HPI EENTM: see HPI; No ear discharge, No hearing loss, No ear pain, No blurred vision, No eye pain, No vision loss, No nose congestion, No nose pain Respiratory: no symptoms reported; No short of breath Cardiovascular: see HPI; No chest pain, No palpitations; syncope Gastrointestinal: see HPI; No abdominal pain, No loss of appetite; nausea; No vomiting Genitourinary: no symptoms reported : No (S/P HYST) Musculoskeletal: no symptoms reported; No back pain, No neck pain Skin: no symptoms reported Psychiatric/Neurological: See HPI, Headache, Paresthesia, Seizure Hematologic/Lymphatic: No Symptoms Reported Immunological/Allergic: no symptoms reported Past Tehzbmb-Jszzxg-Pzezxk Hx Patient Social History Alcohol Use: Regular Use (HX OF DAILY VODKA USE-STATES NO VODKA SINCE AUGUST 2018, NOW DRINKS "1 LOCO AND 2 BEERS" EVERY DAY) Number of Drinks Today: AA Alcohol Beverage of Choice: Beer Recreational Drug Use: No (DENIES ) Smoking Status: Current Everyday Smoker (1 PPD) Type Used: Cigarettes (1 PPD) 2nd Hand Smoke Exposure: Yes Recent Hopitalizations: Yes Physical Abuse: No Sexual Abuse: No Mistreated: No Fear: No Immunizations Up To Date Tetanus Booster (TDap): Less than 5yrs PED Vaccines UTD: Yes Seasonal Allergies Seasonal Allergies: No Past Medical History Surgeries: Yes (HYST / RIGHT SALPINGO-OOPHORECTOMY FOR ECTOPIC; dxls X2 ON RIGHT TUBE) Appendectomy, Hysterectomy, Oophorectomy (BTL; RIGHT SALPINGO-OOPHORECTOMY FOR ECTOPIC; dxls X2 ON RIGHT TUBE), Tubal Ligation Respiratory: No Cardiac: No Neurological: Yes (SEIZURE X 2--ONSET 08/2018, SECOND ONE 11/11/18) Headaches /Migraines Reproductive Disorders: Yes (RIGHT ECTOPIC--S/P HYST AND R.S.O.) [employer] 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 0oz. 48.425913kt; 19.5 BMI Method:Stated General Appearance: No Apparent Distress, WD/WN, Thin, Other (REEKS OF ETOH. SPEECH CLEAR, GAIT STEADY) Eyes: Left Eye Other (LEFT PERIORBITAL HEMATOMA. ); Bilateral Eye PERRL, Bilateral Eye EOMI HEENT: PERRL/EOMI, TMs Normal, Normal ENT Inspection, Pharynx Normal, Other (TENDERNESS AND SLIGHT SWELLING TO RIGHT POSTERIOR PARIETAL/OCCIPITAL AREA) Neck: Full Range of Motion, Normal Inspection, Non Tender, Supple Respiratory: Normal Breath Sounds, No Accessory Muscle Use, No Respiratory Distress Cardiovascular: Regular Rate, Rhythm, No Edema, No JVD, No Murmur, Normal Peripheral Pulses Gastrointestinal: Normal Bowel Sounds, No Organomegaly, No Pulsatile Mass, Non Tender, Soft Back: Normal Inspection, No CVA Tenderness, No Vertebral Tenderness Extremity: Normal Capillary Refill, Normal Inspection, Normal Range of Motion, Non Tender, No Calf Tenderness, No Pedal Edema Neurologic/Psychiatric: Alert, Oriented x3, No Motor/Sensory Deficits, Normal 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, 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 Norm as Tested Skin: Normal Color, Warm/Dry, Ecchymosis (LEFT PERIORBITAL HEMATOMA) Focused Exam Lactate Level Lactic Acid Level Progress/Results/Core Measures Suspected Sepsis SIRS Temperature: Pulse: Respiratory Rate: Blood Pressure / Mean: Results/Orders Lab Results My Orders Medications Given in ED Vital Signs/I&O Capillary Refill : Progress Note : Progress Note ON REVIEWING TEST RESULTS WITH PT, SHE NOW ADMITS THAT SHE "USED TO DRINK VODKA EVERY DAY--2 MIXED DRINKS A DAY, BUT I QUIT DRINKING VODKA IN AUGUST AND NOW I JUST DRINK "LOCO" AND "2 BEERS" EVERY DAY--CLAIMS SHE HAS NOT HAD ANYTHING TO DRINK SINCE YESTERDAY AND IT WAS " ONE LOCO AND 2 BEERS" SPEECH CLEAR AND GAIT STEADY LONG DISCUSSION WITH PT ABOUT NEED FOR FOLLOW UP WITH NEUROLOGIST, AND FOLLOW UP WITH PCP SOON POSSIBLE FOR THIS PROBLEM AND REFERRAL TO NEUROLOGIST. ALSO HAD LENGTHY DISCUSSION WITH -PT ABOUT NO DRIVING OF ANY KIND, AT ANY TIME FOR A MINIMUM OF 6 MONTHS, AND HAD TO BE RELEASED BY HER DR OR NEUROLOGIST BEFORE SHE COULD DRIVE AGAIN. ALSO ADVISED THAT THERE IS A POSSIBILITY THAT THESE MAY BE RELATED TO ALCOHOL WITHDRAWL, AND OFFERED INFORMATION ABOUT ALCOHOL TREATMENT. Diagnostic Imaging Comments CT HEAD/MAXILLOFACIALS/CERVICAL SPINE--NO ACUTE PROCESS CXR--NO ACUTE PROCESS PER RADIOLOGIST REPORTS AT 1418 Reviewed: Reviewed by Me Departure Impression Primary Impression: REPORTED SEIZURE Additional Impressions: Head contusion Periorbital hematoma of left eye Alcohol abuse POSSIBLE ALCOHOL WITHDRAWL SEIZURES Hypokalemia Disposition: HOME, SELF-CARE Condition: Stable Departure-Patient Inst. Referrals: MATHEW RAMOS GARY MD (PCP) Primary Care Physician Patient Instructions: Alcohol Abuse and Alcoholism (DC), Alcohol Withdrawal (DC), Concussion, Adult (DC), Effects of Alcohol on Your Health, Seizures, Adult (DC) Add. Discharge Instructions: NO ALCOHOL!!!!! NO DRIVING!!!!! LOTS OF CLEAR LIQUIDS--WATER, BROTH, JELLO, GATORADE FOLLOW UP WITH DR. SPAULDING THIS WEEK FOR FURTHER EVALUATION AND CARE, AND REFERRAL TO NEUROLOGIST. YOU MAY ALSO CONTACT [facility] [place] FOR OUTPATIENT ALCOHOL ABUSE TREATMENT All discharge instructions reviewed with patient and/or family. Voiced understanding. Scripts Clonidine HCl (Clonidine HCl) 0.1 Mg Tablet 0.1 MG PO BID, #10 TAB Prov: RUTH CHAMBERS DO 11/16/18 RUTH CHAMBERS DO Nov 16, 2018 13:12
[2018-11-16 13:32] LABS: CREATINE KINASE MB 1.5 NG/ML (<6.6); TSH (THYROID ANALYZER) 3.46 UIU/ML (0.35-4.94)
--- NOTE | 2018-11-16 14:08 | Diagnostic Imaging Report ---
Patient History: Seizure with fall and injury. Technique: Two views of the chest Comparison: 05/27/2013 FINDINGS: The lung volumes are normal. No focal consolidation is seen. No large pleural effusion or pneumothorax is seen. The cardiomediastinal silhouette is normal in size and contour. No acute osseous abnormality is seen. IMPRESSION: No acute pulmonary abnormality seen. Dictated by: Dictated on workstation # [id number]
--- NOTE | 2018-11-16 14:08 | Diagnostic Imaging Report ---
PROCEDURE: CT head, face, and cervical spine without contrast. TECHNIQUE: Multiple contiguous axial images were obtained through the head, neck, and facial bones without the use of intravenous contrast. Sagittal and coronal reformations through the cervical spine and facial bones were also performed. Auto Exposure Controls were utilized during the CT exam to meet ALARA standards for radiation dose reduction. INDICATION: Seizure. Head injury. COMPARISON: CT head without contrast from 02/18/2018. FINDINGS: CT head and maxillofacial: No intracranial hemorrhage, mass effect, hydrocephalus, or extra-axial fluid collections. No CT evidence of a territorial infarction. The skull base and calvarium are intact. No maxillofacial fractures. Moderate leftward bowing of the nasal septum. The paranasal sinuses are clear. The mastoids and middle ears are clear. CT cervical spine: Normal alignment. Vertebral body heights are preserved. No fractures. No evidence of high-grade neural impingement. The visualized paravertebral soft tissues are unremarkable. IMPRESSION: No acute intracranial or cervical spine CT findings. No maxillofacial fractures. Dictated by: Dictated on workstation # [id number]
[2018-11-16] MEDS ORDERED: KCL 10 MEQ TAB (MICRO K) PO ONE (14:30)
[2018-11-16 14:52] LABS: BILIRUBIN,URINE NEGATIVE (NEGATIVE); CLARITY,URINE CLEAR; COLOR,URINE YELLOW; GLUCOSE, URINE (UA) NEGATIVE (NEGATIVE); KETONES,URINE NEGATIVE (NEGATIVE); LEUKOCYTE ESTERASE ,URINE NEGATIVE (NEGATIVE); NITRITE,URINE NEGATIVE (NEGATIVE); PH,URINE 7 (5-9); PROTEIN,URINE NEGATIVE (NEGATIVE); UROBILINOGEN,URINE NORMAL (NORMAL)
[2018-11-16 14:59] LABS: BACTERIA,URINE NEGATIVE /HPF
[2018-11-16 15:00] LABS: SQUAMOUS EPITHELIAL CELL,UR 0-2 /HPF
[2018-11-16] MEDS ORDERED: CLON0.1T PO (15:04)
[2018-11-16 15:12] LABS: AMPHETAMINE SCREEN, URINE NEGATIVE (NEGATIVE); BARBITURATE SCREEN URINE NEGATIVE (NEGATIVE); BENZODIAZEPINES SCREEN URINE NEGATIVE (NEGATIVE); CANNABINOID SCREEN, URINE NEGATIVE (NEGATIVE); COCAINE SCREEN URINE NEGATIVE (NEGATIVE); METHADONE STAT NEGATIVE (NEGATIVE); METHAMPHETAMINE SCREEN URINE S NEGATIVE (NEGATIVE); OPIATE SCREEN URINE NEGATIVE (NEGATIVE); OXYCODONE STAT NEGATIVE (NEGATIVE); PROPOXYPHENE STAT NEGATIVE (NEGATIVE); TRICYCLIC ANTIDEPRESSANTS SCRE NEGATIVE (NEGATIVE)
[2018-11-16 15:20] VITALS: BP 140/86
== END 2018-11-16 15:20 | disposition home or self-care (01) ==
LOC: EDUNIT# 12:18 → ER 12:19
DX: S00.12XA Contusion of left eyelid and periocular area, initial encounter (principal); F10.10 Alcohol abuse, uncomplicated; E87.6 Hypokalemia; R56.9 Unspecified convulsions; G43.909 Migraine, unspecified, not intractable, without status migrainosus; E03.9 Hypothyroidism, unspecified; F17.210 Nicotine dependence, cigarettes, uncomplicated; Z98.51 Tubal ligation status; Z88.0 Allergy status to penicillin; Z90.710 Acquired absence of both cervix and uterus; Y90.6 Blood alcohol level of 120-199 mg/100 ml; W22.8XXA Striking against or struck by other objects, initial encounter
CPT/HCPCS: 36415; 70450; 70486; 71046; 72125; 80053; 80306; 80320; 81000; 82550; 82553; 83605; 83735; 83874; 84443; 84484; 85025; 85610; 85730; 93005; 96360